=== PATIENT | male | born 1985 | race Two or more races ===

== ENCOUNTER 2017-10-21 09:56 | Emergency (ER) | payer MEDICAID ==
[~2017-10-21] VITALS: Ht 165.1 cm; Wt 73.7 kg
[2017-10-21 09:59] VITALS: BP 112/72
[2017-10-21] MEDS ORDERED: ALBUTEROL/IPRATROPIUM 2.5MG/0.5MG, 3 ML NPPB SCH (10:30)
[2017-10-21] MEDS ORDERED: ALBUTEROL/IPRATROPIUM 2.5MG/0.5MG, 3 ML ONE (10:47)
== END 2017-10-21 11:49 | disposition home or self-care (01) ==
LOC: ED 10:00
DX: J45.31 Mild persistent asthma with (acute) exacerbation (principal); F17.210 Nicotine dependence, cigarettes, uncomplicated
CPT/HCPCS: 71046; 93005; 94640; 99284; J7512; J7620

== ENCOUNTER 2017-10-27 13:25 | Emergency (ER) | payer MEDICAID ==
[~2017-10-27] VITALS: Ht 165.1 cm; Wt 72.0 kg
[2017-10-27 13:29] VITALS: BP 122/80
[2017-10-27] MEDS ORDERED: CEFTRIAXONE 250 MG ONE (14:17)
[2017-10-27] MEDS ORDERED: AZITHROMYCIN 500 MG TABLET ONE (14:17)
[2017-10-27] MEDS ORDERED: CEFTRIAXONE 250 MG IM ONE (14:30)
[2017-10-27] MEDS ORDERED: AZITHROMYCIN 500 MG TABLET PO ONE (14:30)
== END 2017-10-27 15:24 | disposition home or self-care (01) ==
LOC: ED 15:18
DX: A56.8 Sexually transmitted chlamydial infection of other sites (principal); J45.909 Unspecified asthma, uncomplicated
CPT/HCPCS: 87491; 87591; 96372; 99283; J0696; 99284

== ENCOUNTER 2018-01-06 19:59 | Emergency (ER) | payer MEDICAID ==
[~2018-01-06] VITALS: Ht 165.1 cm; Wt 69.0 kg
[2018-01-06 20:28] LABS: INTERNATIONAL NORMALIZED RATIO 1.09 (0.93-1.1); PROTHROMBIN TIME 11.3 Seconds (9.6-11.5)
[2018-01-06 20:29] LABS: BASOPHILS # (AUTO) 0.03 x10^3/uL (0-0.1); BASOPHILS % (AUTO) 0 % (0-1); EOSINOPHILS # (AUTO) 0.06 x10^3/uL (0-0.4); EOSINOPHILS % (AUTO) 1 % (1-7); LYMPHOCYTES # (AUTO) 3.01 x10^3/uL (1-3.4); LYMPHOCYTES % (AUTO) 31 % (22-44); MEAN CORPUSCULAR HEMOGLOBIN 29.3 pg (27.5-34.5); MEAN CORPUSCULAR VOLUME 86.3 fL (81-97); MEAN PLATELET VOLUME 9.5 fL (7.4-10.4); MONOCYTES # (AUTO) 0.99 x10^3/uL (0.2-0.8); MONOCYTES % (AUTO) 10 % (2-9); NEUTROPHILS % (AUTO) 57 % (42-75); PLATELET COUNT 222 x10^3/uL (130-400); RED BLOOD COUNT 5.78 x10^6/uL (4.38-5.82); RED CELL DISTRIBUTION WIDTH 14.5 % (9.4-14.8)
[2018-01-06 20:30] LABS: MD NO
[2018-01-06] MEDS ORDERED: SODIUM CHLORIDE FLUSH 10ML SYR IVF ONE (20:30)
[2018-01-06 20:32] LABS: ALANINE AMINOTRANSFERASE 24 U/L (12-78); ALBUMIN 3.9 g/dL (3.4-5.0); ANION GAP 9 mmol/L (5-15); CALCIUM 9.2 mg/dL (8.5-10.1); CHLORIDE 109 mmol/L (98-107); CREATININE 0.96 mg/dL (0.7-1.3)
[2018-01-06 20:34] LABS: ALKALINE PHOSPHATASE 50 U/L (45-117); BILIRUBIN,TOTAL 1.3 mg/dL (0.2-1.0); TOTAL PROTEIN 7.7 g/dL (6.4-8.2)
[2018-01-06] MEDS ORDERED: KETOROLAC 30 MG/1 ML ONE (20:41)
[2018-01-06] MEDS ORDERED: OXYcodone/APAP 5/325MG TABLET ONE (20:42)
[2018-01-06] MEDS ORDERED: DIAZEPAM 5 MG TABLET ONE (20:42)
[2018-01-06] MEDS ORDERED: DIAZEPAM 5 MG TABLET PO ONE (21:00)
[2018-01-06] MEDS ORDERED: OXYcodone/APAP 5/325MG TABLET PO ONE (21:00)
[2018-01-06] MEDS ORDERED: KETOROLAC 30 MG/1 ML IM ONE (21:00)
[2018-01-06 21:23] VITALS: BP 123/81
== END 2018-01-06 22:09 | disposition home or self-care (01) ==
LOC: ED 21:21
DX: M54.12 Radiculopathy, cervical region (principal); R11.2 Nausea with vomiting, unspecified; R19.7 Diarrhea, unspecified; R10.9 Unspecified abdominal pain; J45.909 Unspecified asthma, uncomplicated
CPT/HCPCS: 36415; 71046; 72125; 80053; 83690; 85025; 85610; 96372; 99285; J1885; J7512; 99284

== ENCOUNTER 2018-01-21 07:05 | Inpatient (IN) | payer MEDICAID ==
[~2018-01-21] VITALS: Ht 165.1 cm; Wt 77.7 kg
[2018-01-21] MEDS ORDERED: KETOROLAC 30 MG/1 ML ONE (07:29)
[2018-01-21] MEDS ORDERED: MORPHINE SULFATE 4 MG/ML, 1ML ONE ×2 (07:29→09:36)
[2018-01-21] MEDS ORDERED: KETOROLAC 30 MG/1 ML IVPush ONE (07:30)
[2018-01-21] MEDS ORDERED: DIAZEPAM 5 MG/ML, 2ML IVPush ONE (07:30)
[2018-01-21] MEDS: MORPHINE SULFATE 4 MG/ML, 1ML IVPush PRN ×2 (07:39→09:40)
[2018-01-21] MEDS ORDERED: ONDANSETRON ODT 4 MG ONE (07:48)
[2018-01-21 07:53] LABS: BASOPHILS # (AUTO) 0.03 x10^3/uL (0-0.1); BASOPHILS % (AUTO) 0 % (0-1); EOSINOPHILS # (AUTO) 0.17 x10^3/uL (0-0.4); EOSINOPHILS % (AUTO) 2 % (1-7); HCT (SEDRATE) 47.9 % (39.2-51.8); LYMPHOCYTES # (AUTO) 2.07 x10^3/uL (1-3.4); LYMPHOCYTES % (AUTO) 21 % (22-44); MD NO; MEAN CORPUSCULAR HGB CONC 33.3 g/dL (33.2-36.2); MEAN CORPUSCULAR VOLUME 87.1 fL (81-97); MEAN PLATELET VOLUME 9.2 fL (7.4-10.4); MONOCYTES # (AUTO) 0.89 x10^3/uL (0.2-0.8); MONOCYTES % (AUTO) 9 % (2-9); NEUTROPHILS # (AUTO) 6.73 x10^3/uL (1.8-6.8); NEUTROPHILS % (AUTO) 68 % (42-75); PLATELET COUNT 213 x10^3/uL (130-400); RED BLOOD COUNT 5.52 x10^6/uL (4.38-5.82); RED CELL DISTRIBUTION WIDTH 14.4 % (9.4-14.8)
[2018-01-21 07:56] LABS: ALBUMIN 3.8 g/dL (3.4-5.0); ANION GAP 9 mmol/L (5-15); CALCIUM 9.1 mg/dL (8.5-10.1); CHLORIDE 107 mmol/L (98-107); CREATININE 0.89 mg/dL (0.7-1.3)
[2018-01-21] MEDS ORDERED: ONDANSETRON ODT 4 MG PO ONE (08:00)
[2018-01-21] MEDS ORDERED: GADOBUTROL 7.5 MMOL/7.5 ML PFS ONE (08:44)
[2018-01-21] MEDS ORDERED: PIPERACILLIN/TAZO/PMX 3.375GM 50 ML IV ONE (09:30)
[2018-01-21] MEDS ORDERED: VANCOMYCIN PER PHARMACY MC PRN (09:30)
[2018-01-21] MEDS ORDERED: PIPERACILLIN/TAZO/PMX 3.375GM 50 ML ONE (09:35)
[2018-01-21] MEDS ORDERED: HYDROmorphone 2 MG/ML, 1ML IV ONE (10:00)
[2018-01-21] MEDS ORDERED: ALBU90AE PO (10:26)
[2018-01-21] MEDS ORDERED: methylPREDNISolone SOD SUCC 125 MG/2 ML IVPush ONE (10:30)
[2018-01-21] MEDS ORDERED: PLEASE ENTER WEIGHT MC SCH (10:30)
[2018-01-21] MEDS ORDERED: HYDROmorphone 2 MG/ML, 1ML ONE (10:30)
[2018-01-21] MEDS ORDERED: METHOCARBAMOL 750 MG in DEXTROSE 5% 100 ML IV ONE (10:31)
[2018-01-21 11:28] VITALS: BP 136/78
[2018-01-21 11:29] VITALS: BP 136/78
[2018-01-21] MEDS ORDERED: HYDROmorphone 2 MG/ML, 1ML IVPush PRN (12:00)
[2018-01-21] MEDS ORDERED: ONDANSETRON 2MG/ML, 2ML IVPush PRN (12:00)
[2018-01-21] MEDS ORDERED: DIAZEPAM 5 MG/ML, 10ML VIAL IV PRN (12:00)
[2018-01-21] MEDS ORDERED: ONDANSETRON ODT 4 MG PO PRN (12:00)
[2018-01-21] MEDS: HYDROcodone/APAP 5/325 TABLET PO PRN ×3 (12:48→21:26)
[2018-01-21 13:23] VITALS: BP 109/76
[2018-01-21] MEDS ORDERED: KETOROLAC 30 MG/1 ML IVPush PRN (14:30)
[2018-01-21] MEDS: NICOTINE 7 MG/24 HR PATCH.TD24 TD SCH (15:48)
[2018-01-21] MEDS: POTASSIUM CHLORIDE 20 MEQ in LACTATED RINGERS 1,000 ML IV SCH (15:51)
[2018-01-21] MEDS: DEXAMETHASONE 4 MG/ML, 1ML IVPush SCH ×2 (15:52→22:02)
[2018-01-21] MEDS: DIAZEPAM 5 MG TABLET PO PRN (16:34)
[2018-01-21 19:24] VITALS: BP 103/63
[2018-01-21] MEDS: DOCUSATE 100 MG CAPSULE PO PRN (20:06)
[2018-01-22 01:57] VITALS: BP 96/64
[2018-01-22] MEDS: HYDROcodone/APAP 5/325 TABLET PO PRN ×3 (02:46→21:32)
[2018-01-22] MEDS: POTASSIUM CHLORIDE 20 MEQ in LACTATED RINGERS 1,000 ML IV SCH (02:46)
[2018-01-22 05:55] LABS: ANION GAP 6 mmol/L (5-15); BASOPHILS # (AUTO) 0.03 x10^3/uL (0-0.1); BASOPHILS % (AUTO) 0 % (0-1); CALCIUM 9.2 mg/dL (8.5-10.1); CHLORIDE 107 mmol/L (98-107); CREATININE 0.84 mg/dL (0.7-1.3); EOSINOPHILS % (AUTO) 0 % (1-7); LYMPHOCYTES # (AUTO) 1.09 x10^3/uL (1-3.4); LYMPHOCYTES % (AUTO) 10 % (22-44); MD NO; MEAN CORPUSCULAR HEMOGLOBIN 28.9 pg (27.5-34.5); MEAN CORPUSCULAR HGB CONC 33.3 g/dL (33.2-36.2); MEAN CORPUSCULAR VOLUME 86.8 fL (81-97); MEAN PLATELET VOLUME 9.3 fL (7.4-10.4); MONOCYTES # (AUTO) 0.34 x10^3/uL (0.2-0.8); MONOCYTES % (AUTO) 3 % (2-9); NEUTROPHILS # (AUTO) 9.17 x10^3/uL (1.8-6.8); NEUTROPHILS % (AUTO) 86 % (42-75); PLATELET COUNT 210 x10^3/uL (130-400); RED BLOOD COUNT 5.73 x10^6/uL (4.38-5.82); RED CELL DISTRIBUTION WIDTH 14.6 % (9.4-14.8)
[2018-01-22] MEDS: DEXAMETHASONE 4 MG/ML, 1ML IVPush SCH ×4 (05:56→22:44)
[2018-01-22] MEDS: DIAZEPAM 5 MG TABLET PO PRN ×2 (06:12→16:56)
[2018-01-22] MEDS ORDERED: THROMBIN 5,000 UNIT VIAL TP ONE ×2 (06:59→07:56)
[2018-01-22] MEDS ORDERED: BACITRACIN 50,000 UNIT ONE (06:59)
[2018-01-22] MEDS ORDERED: BUPIVACAINE/PF-EPI 0.5% 1:200K ONE (06:59)
[2018-01-22] MEDS ORDERED: FENTANYL PF 250 MCG/5ML ONE (07:09)
[2018-01-22] MEDS ORDERED: MIDAZOLAM 1 MG/ML, 2ML ONE (07:09)
[2018-01-22] MEDS ORDERED: LIDOCAINE JELLY 2%, 30GM ONE (07:10)
[2018-01-22] MEDS ORDERED: BACITRACIN 50,000 UNIT IM ONE (07:56)
[2018-01-22] MEDS ORDERED: BUPIVACAINE/PF-EPI 0.5% 1:200K INFIL ONE (07:56)
[2018-01-22] MEDS ORDERED: DIAZEPAM 5 MG/ML, 2ML IVPush PRN (08:00)
[2018-01-22] MEDS ORDERED: ALBUTEROL/IPRATROPIUM 2.5MG/0.5MG, 3 ML NPPB PRN (08:00)
[2018-01-22] MEDS ORDERED: LABETALOL 5MG/ML, 20ML IV PRN (08:00)
[2018-01-22] MEDS ORDERED: OXYcodone 5 MG/5 ML ORAL.SOL UDC PO PRN (08:00)
[2018-01-22] MEDS ORDERED: ACETAMINOPHEN 325 MG TABLET PO PRN (08:00)
[2018-01-22] MEDS ORDERED: PROMETHAZINE 25 MG SUPP PR PRN (08:00)
[2018-01-22] MEDS ORDERED: MIDAZOLAM 1 MG/ML, 2ML IV PRN (08:00)
[2018-01-22] MEDS ORDERED: HYDROmorphone 1 MG/ML, 1ML IV PRN (08:00)
[2018-01-22] MEDS ORDERED: SCOPOLAMINE PATCH, 1.5MG PATCH.TD72 TD PRN (08:00)
[2018-01-22] MEDS ORDERED: ONDANSETRON 2MG/ML, 2ML IV PRN (08:00)
[2018-01-22] MEDS ORDERED: LIDOCAINE-MPF 2% ,5ML ONE (08:21)
[2018-01-22] MEDS ORDERED: PROPOFOL 10 MG/ML, 20ML ONE (08:27)
[2018-01-22] MEDS ORDERED: CEFAZOLIN 1,000 MG ONE (08:27)
[2018-01-22] MEDS ORDERED: DEXAMETHASONE 4 MG/ML, 1ML ONE (08:27)
[2018-01-22] MEDS ORDERED: ONDANSETRON 2MG/ML, 2ML ONE (08:27)
[2018-01-22] MEDS ORDERED: SUCCINYLCHOLINE 20 MG/ML, 10ML ONE (08:27)
[2018-01-22] MEDS ORDERED: NEOSTIGMINE 1 MG/ML, 10ML ONE (08:27)
[2018-01-22] MEDS ORDERED: GLYCOPYRROLATE 0.2MG/1ML, 5ML ONE (08:27)
[2018-01-22] MEDS ORDERED: ROCURONIUM 10MG/ML,5ML ONE (08:27)
[2018-01-22] MEDS: FENTANYL PF 100 MCG/2ML IV PRN ×2 (09:20→09:30)
[2018-01-22] MEDS ORDERED: FENTANYL PF 100 MCG/2ML ONE (09:25)
[2018-01-22] MEDS ORDERED: ACETAMINOPHEN 650 MG/20.3 ML UDC ONE (09:26)
[2018-01-22] MEDS ORDERED: OXYcodone 5 MG/5 ML ORAL.SOL UDC ONE (09:26)
[2018-01-22] MEDS ORDERED: MEPERIDINE/PF 50 MG/ML ONE (09:35)
[2018-01-22] MEDS: MEPERIDINE/PF 25MG/0.5ML IVPush PRN ×2 (09:40→09:50)
[2018-01-22] MEDS ORDERED: ALBUTEROL SULFATE 2.5 MG/3 ML HHN PRN (11:30)
[2018-01-22] MEDS: NS + 20MEQ KCL 1,000 ML IV SCH ×2 (11:30→16:55)
[2018-01-22] MEDS ORDERED: HYDROmorphone 2 MG/ML, 1ML IVPush PRN (11:30)
[2018-01-22 15:30] VITALS: BP 110/69
[2018-01-22] MEDS: NICOTINE 7 MG/24 HR PATCH.TD24 TD SCH (16:09)
[2018-01-22] MEDS: CEFAZOLIN PMX 2GM/50ML 50 ML IVPB SCH (16:55)
[2018-01-22] MEDS: DOCUSATE 100 MG CAPSULE PO PRN (21:32)
[2018-01-23] MEDS: CEFAZOLIN PMX 2GM/50ML 50 ML IVPB SCH ×2 (01:23→11:13)
[2018-01-23] MEDS: DIAZEPAM 5 MG TABLET PO PRN (01:23)
[2018-01-23 03:52] VITALS: BP 120/70
[2018-01-23] MEDS: NS + 20MEQ KCL 1,000 ML IV SCH ×2 (04:17→14:09)
[2018-01-23] MEDS: DEXAMETHASONE 4 MG/ML, 1ML IVPush SCH (04:18)
[2018-01-23 05:30] LABS: MEAN CORPUSCULAR HEMOGLOBIN 29.3 pg (27.5-34.5); MEAN CORPUSCULAR HGB CONC 33.5 g/dL (33.2-36.2); MEAN CORPUSCULAR VOLUME 87.6 fL (81-97); MEAN PLATELET VOLUME 9.8 fL (7.4-10.4); PLATELET COUNT 185 x10^3/uL (130-400); RED BLOOD COUNT 4.74 x10^6/uL (4.38-5.82); RED CELL DISTRIBUTION WIDTH 14.8 % (9.4-14.8)
[2018-01-23 05:32] LABS: INTERNATIONAL NORMALIZED RATIO 1.1 (0.93-1.1); PROTHROMBIN TIME 11.3 Seconds (9.6-11.5)
[2018-01-23 05:34] LABS: ALBUMIN 3.2 g/dL (3.4-5.0); ANION GAP 8 mmol/L (5-15); CALCIUM 8.7 mg/dL (8.5-10.1); CHLORIDE 109 mmol/L (98-107); CREATININE 0.71 mg/dL (0.7-1.3)
[2018-01-23 06:05] LABS: MD YES
[2018-01-23 06:08] LABS: BANDS%(MANUAL) 8 % (0-7); LYMPH#(MANUAL) 2.01 x10^3/uL (1-3.4); LYMPHS% (MANUAL) 7 % (22-44); MONOS#(MANUAL) 2.01 x10^3/uL (0.3-2.7); MONOS% (MANUAL) 7 % (2-9); SEG#(MANUAL) 22.39 x10^3/uL (1.8-6.8); SEGS% (MANUAL) 78 % (42-75)
[2018-01-23 06:09] LABS: <PLATELET ESTIMATE> ADEQUATE; <PLT MORPHOLOGY> NORMAL PLT MORPH; <RBC MORPHOLOGY> NORMAL
[2018-01-23 07:15] VITALS: BP 116/70
[2018-01-23] MEDS: HYDROcodone/APAP 5/325 TABLET PO PRN ×3 (07:57→17:05)
[2018-01-23] MEDS: DOCUSATE 100 MG CAPSULE PO PRN (08:01)
[2018-01-23] MEDS ORDERED: NICOTINE 14MG/24 HR PATCH.TD24 TD ONE (08:30)
[2018-01-23 09:52] LABS: MEAN CORPUSCULAR HEMOGLOBIN 29.4 pg (27.5-34.5); MEAN CORPUSCULAR VOLUME 86.7 fL (81-97); MEAN PLATELET VOLUME 9.8 fL (7.4-10.4); PLATELET COUNT 211 x10^3/uL (130-400); RED BLOOD COUNT 5.15 x10^6/uL (4.38-5.82); RED CELL DISTRIBUTION WIDTH 14.9 % (9.4-14.8)
[2018-01-23 10:28] LABS: MD YES
[2018-01-23 10:30] LABS: <PLATELET ESTIMATE> ADEQUATE; <PLT MORPHOLOGY> NORMAL PLT MORPH; <RBC MORPHOLOGY> NORMAL; BAND#(MANUAL) 3.55 x10^3/uL; BANDS%(MANUAL) 12 % (0-7); LYMPH#(MANUAL) 1.48 x10^3/uL (1-3.4); LYMPHS% (MANUAL) 5 % (22-44); MONOS#(MANUAL) 0.89 x10^3/uL (0.3-2.7); MONOS% (MANUAL) 3 % (2-9); SEG#(MANUAL) 23.68 x10^3/uL (1.8-6.8); SEGS% (MANUAL) 80 % (42-75)
[2018-01-23] MEDS ORDERED: CYCLOBENZAPRINE 10 MG TABLET PO PRN (10:30)
[2018-01-23] MEDS: FAMOTIDINE 20 MG TABLET PO SCH ×2 (10:30→17:05)
[2018-01-23 13:22] VITALS: BP 124/74
[2018-01-23] MEDS: NICOTINE 7 MG/24 HR PATCH.TD24 TD SCH (15:30)
[2018-01-23 19:25] VITALS: BP 127/83
[2018-01-24 03:08] VITALS: BP 107/67
[2018-01-24] MEDS: HYDROcodone/APAP 5/325 TABLET PO PRN ×2 (03:16→08:00)
[2018-01-24] MEDS: DOCUSATE 100 MG CAPSULE PO PRN (03:16)
[2018-01-24] MEDS: NS + 20MEQ KCL 1,000 ML IV SCH (03:17)
[2018-01-24 05:21] LABS: MEAN CORPUSCULAR HEMOGLOBIN 29.5 pg (27.5-34.5); MEAN CORPUSCULAR HGB CONC 33.4 g/dL (33.2-36.2); MEAN CORPUSCULAR VOLUME 88.3 fL (81-97); MEAN PLATELET VOLUME 9.9 fL (7.4-10.4); PLATELET COUNT 170 x10^3/uL (130-400); RED BLOOD COUNT 4.49 x10^6/uL (4.38-5.82); RED CELL DISTRIBUTION WIDTH 14.7 % (9.4-14.8)
[2018-01-24 05:25] LABS: ANION GAP 7 mmol/L (5-15); CALCIUM 8.4 mg/dL (8.5-10.1); CHLORIDE 109 mmol/L (98-107); CREATININE 0.64 mg/dL (0.7-1.3)
[2018-01-24 05:39] LABS: MD YES
[2018-01-24 05:41] LABS: <PLATELET ESTIMATE> ADEQUATE; <PLT MORPHOLOGY> NORMAL PLT MORPH; <RBC MORPHOLOGY> NORMAL; BASOS#(MANUAL) 0.15 x10^3/uL (0-0.1); BASOS% (MANUAL) 1 % (0-1); LYMPH#(MANUAL) 4.44 x10^3/uL (1-3.4); LYMPHS% (MANUAL) 30 % (22-44); MONOS#(MANUAL) 0.74 x10^3/uL (0.3-2.7); MONOS% (MANUAL) 5 % (2-9); SEG#(MANUAL) 9.47 x10^3/uL (1.8-6.8); SEGS% (MANUAL) 64 % (42-75)
[2018-01-24 06:48] VITALS: BP 123/84
[2018-01-24] MEDS: FAMOTIDINE 20 MG TABLET PO SCH (08:00)
[2018-01-24] MEDS ORDERED: HYDR-3240 PO (10:40)
[2018-01-24] MEDS ORDERED: CYCL-259 PO ×2 (10:40→10:45)
[2018-01-24] MEDS ORDERED: METH4TAB2 PO (10:40)
[2018-01-24] MEDS ORDERED: FAMO20TA37 PO (10:40)
[2018-01-24 11:00] VITALS: BP 125/66
== END 2018-01-24 11:21 | disposition home or self-care (01) | DRG 30 ==
LOC: ED 09:23 → EDIP 09:37 → 4NOR 11:23
PROVIDERS: ADMIT Hospitalist; ATTEND Family Medicine
PROC: 0RG10A0 Fusion of Cervical Vertebral Joint with Interbody Fusion Device, Anterior Approach, Anterior Column, Open Approach (ICD-10-PCS; 2018-01-22)
PROC: 0RH108Z Insertion of Spacer into Cervical Vertebral Joint, Open Approach (ICD-10-PCS; 2018-01-22)
PROC: 0RB30ZZ Excision of Cervical Vertebral Disc, Open Approach (ICD-10-PCS; principal; 2018-01-22 07:30)
DX: S06.4X9A Epidural hemorrhage with loss of consciousness of unspecified duration, initial encounter (principal); M50.222 Other cervical disc displacement at C5-C6 level; D72.829 Elevated white blood cell count, unspecified; J45.909 Unspecified asthma, uncomplicated; F12.90 Cannabis use, unspecified, uncomplicated; F17.210 Nicotine dependence, cigarettes, uncomplicated; M54.10 Radiculopathy, site unspecified; Z79.899 Other long term (current) drug therapy; Z79.1 Long term (current) use of non-steroidal anti-inflammatories (NSAID)
CPT/HCPCS: 36415; 72040; 84145; 99285; J3490; 72156; 80048; 82040; 83605; 85025; 85610; 85651; 86141; 87040; 87070; 87075; 87205; 96374; 96375; 96376; A9585; C1713; G0378; J0690; J1100; J1170; J1885; J2175; J2250; J2405; J2543; J2704; J2710; J3010; J3360; J3480; Q0162; C1762; J0330; J7120; J7512